=== PATIENT | female | born 1990 | race Caucasian/White ===

== ENCOUNTER 2022-10-31 14:41 | Outpatient (REF) | payer OTHER, SELFPAY ==
[2022-10-31 21:39] LABS: Cholesterol 159 mg/dL (<200); Glucose 91 mg/dL (74-106); HDL Cholesterol 73 mg/dL (40-60)
[2022-10-31 21:59] LABS: Triglyceride <25 mg/dL (<150)
[2022-10-31 22:22] LABS: LDL CHOLESTEROL 85 mg/dL (<100)
== END 2022-10-31 14:42 | disposition home or self-care (01) ==
LOC: NCHCN 14:41
PROVIDERS: Visit Provider Nurse Practitioner Family
DX: Z00.00 Encounter for general adult medical examination without abnormal findings (principal)
CPT/HCPCS: 80061; 82947; 83721